=== PATIENT | male | born 1955 | race Caucasian/White ===

== ENCOUNTER 2017-07-08 06:48 | Emergency (ER) | payer BC ==
[~2017-07-08] VITALS: Ht 188 cm; Wt 140.6 kg
[~2017-07-08 06:48] MED LIST: CENTRUM SILVER1 EAC2 PO; FISH OIL 1,001000 M2; GLUCOSAMINE &1 EAC1 PO; LISINOPRIL-HCT1 EAC2 PO; MULTIVITAMINS1 EAC7 PO
[2017-07-08] MEDS ORDERED: FISH OIL 1,001000 M2 PO (07:05)
[2017-07-08 07:51] VITALS: BP 124/68
== END 2017-07-08 07:52 | disposition home or self-care (01) ==
LOC: M.ERS 06:48
DX: I83.91 Asymptomatic varicose veins of right lower extremity (principal); I10 Essential (primary) hypertension; E78.5 Hyperlipidemia, unspecified; M19.90 Unspecified osteoarthritis, unspecified site; N40.0 Benign prostatic hyperplasia without lower urinary tract symptoms; E66.9 Obesity, unspecified; Z87.891 Personal history of nicotine dependence; Z68.39 Body mass index [BMI] 39.0-39.9, adult